=== PATIENT | female | born 1955 | race Caucasian/White ===

== ENCOUNTER 2016-12-11 17:55 | Inpatient (IN) | payer BC, MEDICARE, MEDICAID ==
[~2016-12-11] VITALS: Ht 165.1 cm; Wt 62.9 kg
--- NOTE | ~2016-12-11 | OR ---
PATIENT'S NAME: RUSTY ORTIZ [facility] AGE: 61 Y [address] ROOM: [place] [address] LOCATION: [facility] ADMIT DATE: 12/11/2016 OR/Procedure Report DISCHARGE DATE: FAMILY PHYSICIAN: URBANO BANKS ATTENDING PHYSICIAN: Mark PATINO SURGEON: Corbin Rivers MD DIRECTOR OF MATH: Chadwick Crocker PA-C. DATE OF PROCEDURE: 12/17/2016 POSTOPERATIVE DIAGNOSIS: Right periprosthetic diaphyseal fracture of the femur after a witnessed mechanical fall. POSTOPERATIVE DIAGNOSIS: Right periprosthetic diaphyseal fracture of the femur after a witnessed mechanical fall. PROCEDURE: 1. Revision right long femoral intramedullary nailing. 2. Removal of short femoral intramedullary nail. 3. Use of intraoperative fluoroscopy, less than 1 hour. ANESTHESIA: General endotracheal anesthesia. FLUIDS: See anesthesia report. EBL: 100 mL SPECIMEN: Removed femoral intramedullary nail. COMPLICATIONS: None. DISPOSITION: Stable in PACU. All counts correct. IMPLANTS: Synthes long TFNA with cephalomedullary screw and two distal interlocking screws at the knee. INDICATIONS: Ms. Ortiz is a pleasant 61-year-old female who sustained a fall after undergoing a femoral intramedullary nailing procedure for a right hip fracture. At that time, diagnostic imaging revealed evidence of a periprosthetic fracture just distal to the tip of the short intramedullary device. We discussed the risks, benefits, and alternatives of pursuing a revision operation with the patient's , her power of document review attorney. We discussed the risks, benefits, and alternatives to pursuing a surgical intervention in detail. We discussed the risks of anesthesia, bleeding, infection, and/or injury to neurovascular structures. Informed consent was obtained. They elected to proceed with surgery. I marked the patient's right PATIENT'S NAME: RUSTY ORTIZ [facility] AGE: 61 Y [address] ROOM: [place] [address] LOCATION: [facility] ADMIT DATE: 12/11/2016 OR/Procedure Report DISCHARGE DATE: FAMILY PHYSICIAN: URBANO BANKS ATTENDING PHYSICIAN: Mark PATINO lower extremity indicating correct surgical site. Anesthesia was consulted for their perioperative evaluation on the patient. OPERATIVE REPORT IN DETAIL: The patient brought from the holding area to the operating room. A time-out was performed. General endotracheal anesthesia was administered. The patient positioned on the [place] table. A time-out was performed. Sterile dressings were placed. I turned my attention to the right hip. I introduced intraoperative fluoroscopy. I made a surgical incision at the previous one through skin and subcutaneous tissue, muscle, fascia, down to bone. I attached the removal handle to the top of the intramedullary nail. I then removed the cephalomedullary screw through a separate distal incision followed by a distal interlocking screw through a separate incision, both the previously used surgical incision from when the nail was first inserted. I subsequently removed the nail and confirmed this fluoroscopically. I performed a closed reduction of the hip fracture. I subsequently reamed the femoral shaft up to 11.[address] a size 10 mm nail, 380 mm in length. The femoral nail was subsequently introduced. I obtained a proximal fixation by replacing the same cephalomedullary screw back into the femoral head. This reduction was well-maintained. I applied the set screw. The jig was then removed from the proximal aspect of the nail. I turned my attention to the distal aspect of the nail. It was well reduced in the distal femur. Using a perfect [place] technique, I made a skin incision for two distal interlocking screw holes. The skin incision was carried through skin, subcutaneous tissue, fascia, muscle down to bone. I drilled for, measured, and placed two interlocking screws, one in the distal static hole and one in the oblong hole. I confirmed the position fluoroscopically. Final fluoroscopic images revealed evidence of a successful removal of a previous short intramedullary nail and subsequent long femoral intramedullary nailing of a segmental femur fracture. All the wounds were copiously irrigated with normal sterile saline solution and closed in layers. Sterile Mepilex dressing was placed over the surgical incisions. The patient was then transferred from the operating table onto the stretcher and extubated. She was brought to the recovery room in stable condition. There were no intraoperative complications noted. PATIENT'S NAME: RUSTY ORTIZ [facility] AGE: 61 Y [address] ROOM: [address] [address] LOCATION: [facility] ADMIT DATE: 12/11/2016 OR/Procedure Report DISCHARGE DATE: FAMILY PHYSICIAN: URBANO BANKS ATTENDING PHYSICIAN: Mark PATINO Of note, my PA, Chadwick Crocker PA-C, played an integral role in the intraoperative care of this patient. This included preoperative positioning, intraoperative expert retraction, and closing and dressing functions. IMPRESSION: The patient is status post the noted procedures above. PLAN: The patient will be toe-touch weightbearing on the right lower extremity. Postoperative DVT prophylaxis will be in the form of Lovenox. Pain control will be in form of Percocet and IV morphine as needed for pain. Postoperative antibiotics will be in the form of Ancef per routine. Physical Therapy and Occupational Therapy will be consulted for early ambulation and prevention of deconditioning. The hospitalist will continue to manage the patient's concomitant medical comorbidities. I will continue to follow the patient closely in the postoperative period. MD MAGGIE LUND/modl /[id number] d: 12/17/16 2243 t: 12/21/16 1405, OPERATIVE SUMMARY
--- NOTE | ~2016-12-11 | OR ---
PATIENT'S NAME: RUSTY ORTIZ [facility] AGE: 61 Y [address] ROOM: [place] [address] LOCATION: [facility] ADMIT DATE: 12/11/2016 OR/Procedure Report DISCHARGE DATE: FAMILY PHYSICIAN: PHYSICIAN, UNKNOWN ATTENDING PHYSICIAN: Mark PATINO SURGEON: Corbin Rivers MD NUCLEAR REACTOR ENGINEER: Chadwick Crocker PA-C. DATE OF PROCEDURE: 12/12/2016 PREOPERATIVE DIAGNOSIS: Right comminuted intertrochanteric fracture of the proximal femur. POSTOPERATIVE DIAGNOSIS: Right comminuted intertrochanteric fracture of the proximal femur. PROCEDURE: 1. Right femoral intramedullary nailing. 2. Use of intraoperative fluoroscopy, less than 1 hour. ANESTHESIA: General endotracheal anesthesia. FLUIDS: See Anesthesia report. ESTIMATED BLOOD LOSS: 50 mL. SPECIMEN: None. COMPLICATIONS: None. DISPOSITION: Stable in PACU. COUNTS: All counts correct. IMPLANTS: Synthes right TFN-A. INDICATION: Ms. Ortiz is a pleasant 61-year-old female who presents with a right hip fracture. The risks, benefits, and alternatives of pursuing surgical intervention were discussed with her , her power of sports attorney. Anesthesia was consulted for their perioperative evaluation of the patient. I marked the patient's right lower extremity indicating correct surgical site. DESCRIPTION OF PROCEDURE: The patient was brought from the holding area to the operating room. A time-out was performed. General endotracheal anesthesia was administered. 2 g of Ancef antibiotics were administered for perioperative prophylaxis. PATIENT'S NAME: RUSTY ORTIZ [facility] AGE: 61 Y [address] ROOM: [place] [address] LOCATION: [facility] ADMIT DATE: 12/11/2016 OR/Procedure Report DISCHARGE DATE: FAMILY PHYSICIAN: PHYSICIAN, UNKNOWN ATTENDING PHYSICIAN: Mark PATINO The patient was positioned supine on the [place] table with the right leg in traction. Intraoperative fluoroscopy was introduced to assess the preoperative reduction. Once the preoperative reduction was undertaken, the right lower extremity was then prepped and draped in a sterile fashion. I turned my attention to the right hip. A time-out was performed. I began with a pin at the tip of the greater trochanter to enter into the intramedullary canal. I then made a surgical incision 3 fingerbreadths proximal to the tip of the greater trochanter through skin, subcutaneous tissue, muscle fascia down to bone. I then introduced my opening reamer to open the intramedullary canal. I subsequently introduced my femoral nail. Once the nail was introduced, I subsequently placed a pin into the femoral head for my cephalomedullary screw. I confirmed its position fluoroscopically. The hip was well reduced previously. I subsequently measured for, drilled, and placed a cephalomedullary screw into the hip and subsequently compressed through the nail. I confirmed the reduction fluoroscopically. I turned my attention to the distal aspect of the nail. I made an incision through skin, subcutaneous tissue, muscle fascia down to bone. I introduced the jig, drilled for, measured, and placed an interlocking screw through the nail distally. The gross traction was removed from the leg. Final fluoroscopic images revealed evidence of a successfully open reduced and internally fixated comminuted intertrochanteric fracture of the hip with a femoral intramedullary nail. The wounds were then copiously irrigated with a normal sterile saline solution and closed in layers. The patient was then transferred from the operating room table onto the hospital bed and extubated. She was brought to the recovery room in stable condition. There were no intraoperative complications noted. Of note, my PA, Chadwick Crocker PA-C, played an integral role in the intraoperative care of this patient. This included preoperative positioning, intraoperative expert retraction, and closing and dressing functions. IMPRESSION: The patient is status post the noted procedures above. PLAN: The patient will be weightbearing as tolerated in the right lower PATIENT'S NAME: RUSTY ORTIZ [facility] AGE: 61 Y [address] ROOM: [address] [address] LOCATION: [facility] ADMIT DATE: 12/11/2016 OR/Procedure Report DISCHARGE DATE: FAMILY PHYSICIAN: PHYSICIAN, UNKNOWN ATTENDING PHYSICIAN: Mark PATINO. She will be encouraged to rest, ice, and elevate the extremity going forward. Postoperative pain control in the form of Percocet and IV morphine as needed for pain. DVT prophylaxis will be in the form of Lovenox. Postoperative antibiotics will be administered per routine. The Hospitalist Service will continue to manage the patient's concomitant medical comorbidities. I will continue to monitor the patient closely in the postoperative period. MD MAGGIE LUND/africa /[id number] d: 12/12/16 1919 t: 12/13/16 1232, OPERATIVE SUMMARY
--- NOTE | ~2016-12-11 | DS ---
PATIENT'S NAME: RUSTY ORTIZ [facility] AGE: 61 Y [address] ROOM: [address] [address] LOCATION: G3 ADMIT DATE: 12/11/2016 Discharge Summary DISCHARGE DATE: 12/23/2016 FAMILY PHYSICIAN: ATTENDING PHYSICIAN: Mark Bird DISCHARGE DIAGNOSES: 1. Right intertrochanteric fracture status post IM nail with subsequent periprosthetic diaphyseal fracture with revision of IM nail. 2. Dysphagia status post PEG tube. 3. Seizure disorder. 4. Protein calorie malnutrition. 5. Essential hypertension. 6. Vitamin D deficiency. HOSPITAL COURSE: Please refer to admitting history and physical as dictated by Dr. Meza. Briefly, the patient was admitted to [facility] with a right intertrochanteric hip fracture. Dr. Rivers was consulted. He recommended she proceed with a right femoral IM nail. This was done on 12/12/2016. Postoperatively, the patient tolerated the procedure well. Her seizures were well controlled with her home regimen. Postoperatively, she was noted to have some dysphagia. Speech therapy did evaluate the patient. She was started on nectar-thick liquids and pureed foods. Dilaudid was used for pain. The patient appeared comfortable postoperatively. Lovenox was used for DVT prophylaxis. On 12/15/2016, she was found sitting upright on the floor. CT scan of the right femur was performed, which did show periprosthetic fracture. Therefore, Dr. Rivers took her back to surgery and performed placement of a long FIN. She was made toe-touch weightbearing. On 12/19/2016, she was noted to have some hypotension. She was given a fluid bolus. This did improve. Due to her dysphagia, surgery consult was obtained for PEG tube placement. Her did consent to the PEG tube. This was performed on 12/18/2016. While the patient was n.p.o. waiting for the PEG tube, PPN was used for her moderate protein calorie malnutrition. She was noted to have elevated alkaline phosphatase, AST and ALT. Right upper quadrant ultrasound was performed which showed changes of a previous cholecystectomy with no abnormality identified. The following day, her AST, ALT and alkaline phosphatase had trended downward. On 12/23/2016, the patient had been started on Jevity tube feedings working the way up to goal. Her vital signs were stable. Pain was controlled. Vital signs were stable. It was felt as though she was stable to be transferred to [facility] with the eventual goal [facility]. LABORATORY DATA: Sodium remained stable. Potassium 3.6 to 4.6. BUN 23 on admit and 10 prior to discharge. Creatinine 0.4 upon admit and 0.5 prior to discharge. Alkaline phosphatase 70 upon admit, it did increase as high as PATIENT'S NAME: RUSTY ORTIZ [facility] AGE: 61 Y [address] ROOM: [address] [address] LOCATION: [facility] ADMIT DATE: 12/11/2016 Discharge Summary DISCHARGE DATE: 12/23/2016 FAMILY PHYSICIAN: ATTENDING PHYSICIAN: Mark Bird 235, prior to discharge 223. AST 30 upon admit, it increased to 83, prior to discharge 34. ALT 34 on admit, it went as high as 78, it is 54 prior to discharge. GFR greater than 90. Mag 2.0. Pre-albumin 17, hemoglobin A1c 4.4, TSH 2.280. WBC 6.0 to 9.4, hemoglobin 10.8 to 11.9, platelets 409. UA; leukocytes 25, protein 15, ketones negative, blood 10, wbc's 5-10, epithelial 2-5, bacteria moderate. Stool occult blood was negative x3. C. diff negative. Urine culture, no growth at 2 days. DISCHARGE INSTRUCTIONS: The patient will be discharged to [facility]. Follow up with Dr. Rivers in 2 weeks. Jevity 1.5 or per facility formula, formulary started at 110 mL x3 feedings, increase as tolerated to goal, 220 mL six times per day, 60 mL water flush before and after feedings. Weightbearing status; toe-touch weightbearing right lower extremity. PT/OT/ST to evaluate and treat. Oxygen as needed to keep saturations greater than 90%. CBC and CMP on 12/25/2016. Recheck vitamin D level in 7 weeks. Change Mepilex to right hip and thigh every 7 days. Discontinue Clemente upon arrival to accepting facility. Rehab potential is poor. Discharge potential is poor. DISCHARGE MEDICATIONS: 1. Norvasc 10 mg p.o. daily. 2. Abilify 20 mg p.o. daily. 3. BuSpar 5 mg p.o. twice daily. 4. Os-Mark D 500 mg p.o. twice daily. 5. Liquid Colace 100 mg p.o. 3 times a day. 6. Felbatol 1800 mg p.o. 3 times daily. 7. Ativan 0.5 mg twice daily. 8. Geodon 160 mg daily. 9. Geodon 20 mg p.o. daily at 0800. 10. Geodon 220 mg at 1700. 11. Multivitamin daily. 12. MiraLax 17 g twice daily. 13. Senna 8.6 mg p.o. twice daily. 14. Vitamin D 48533 units weekly x6 weeks. 15. Tylenol 650 mg rectally every 4 hours as needed for pain. 16. Tylenol 650 mg per PEG every 4 hours p.r.n. 17. Dulcolax suppository daily p.r.n. constipation. 18. Milk of magnesia 30 mL daily p.r.n. constipation. 19. Nystatin as needed for yeast. 20. Preparation H ointment as needed for hemorrhoids. 21. Albuterol 1 vial as needed for wheezing. 22. Lorazepam 2 mg topical cream only after third seizure. 23. Banzel 1600 mg twice daily. 24. Gabitril 12 mg p.o. daily. 25. Maalox 30 mL every 2 hours as needed for indigestion. 26. Onfi 60 mg rectally every night at bedtime. PATIENT'S NAME: RUSTY ORTIZ [facility] AGE: 61 Y [address] ROOM: [place] [address] LOCATION: [facility] ADMIT DATE: 12/11/2016 Discharge Summary DISCHARGE DATE: 12/23/2016 FAMILY PHYSICIAN: ATTENDING PHYSICIAN: Mark Bird 27. Onfi 10 mg p.o. every day. 28. Oxygen 1-4 L p.r.n. when saturations below 90%. 29. Lorazepam 1 mg cream topically p.r.n. agitation or behaviors. 30. Aloe [place] p.r.n. 31. All meds per PEG tube that were p.o. 32. Lovenox 40 mg subcu daily. Stop after 01/31/2017 dose, indication for DVT prophylaxis. 33. Percocet 5/325 one tablet p.o. q.4 hours p.r.n. pain. Thank you for allowing us to participate in the care of this patient as she has been hospitalized at [facility]. CAITY ELLSWORTH APRN FOR MD SARAY CRAWFORD/sharril /[id number] d: 12/24/16 0113 t: 12/26/16 1541, DISCHARGE SUMMARY
--- NOTE | ~2016-12-11 | OR ---
PATIENT'S NAME: RUSTY ORTIZ [facility] AGE: 61 Y [address] ROOM: [place] [address] LOCATION: [facility] ADMIT DATE: 12/11/2016 OR/Procedure Report DISCHARGE DATE: FAMILY PHYSICIAN: URBANO BANKS ATTENDING PHYSICIAN: Mark PATINO SURGEON: Steve Menezes MD MOBILE DESIGNER: DATE OF PROCEDURE: 12/22/2016 PREOPERATIVE DIAGNOSIS: Dysphagia. POSTOPERATIVE DIAGNOSIS: Dysphagia. PROCEDURE PERFORMED: EGD with PEG placement. ANESTHESIA: MAC with local. SPECIMEN: None. ESTIMATED BLOOD LOSS: Minimal. REASON FOR PROCEDURE: The patient is a 61-year-old female, who has been hospitalized recently. She failed a barium swallow and has felt like she is in need of long-term enteral access. She has had a previous PEG placed, but had been pulled sometime ago. PROCEDURE IN DETAIL: The patient was taken to the endoscopy suite and placed in the supine position. After Anesthesia provided sedation, a bite block was placed between her teeth. The gastroscope was advanced through the bite block and the esophagus was intubated under direct visualization. The scope was gradually advanced down a normal-appearing esophagus. The stomach was insufflated and inspected. Pressure on the abdominal wall was used to localize an area for PEG placement. This was then marked and prepped with ChloraPrep and a drape was applied to the area. Local with epinephrine was injected into the area, a 1 cm stab incision was made. A needle was then advanced through the abdominal wall and visualized entering the gastric mucosa. A guidewire was advanced through the needle. The guidewire was grasped with a snare and carefully withdrawn up the esophagus and oropharynx. The PEG tube was advanced over the guidewire and pulled into position. A bolster was used to hold this in place. We also applied a Prolene suture to help to prevent the patient from pulling her tube. POSTPROCEDURE PLAN: The patient will be sent to recovery and then back to the floor. We will leave the tube clamp for 8 hours and then restart tube feeds. PATIENT'S NAME: RUSTY ORTIZ [facility] AGE: 61 Y [address] ROOM: [address] [address] LOCATION: [facility] ADMIT DATE: 12/11/2016 OR/Procedure Report DISCHARGE DATE: FAMILY PHYSICIAN: URBANO BANKS ATTENDING PHYSICIAN: Mark PATINO MD HECTOR KAHN/modl /[id number] d: 12/22/16 1550 t: 12/25/16 0944, OPERATIVE SUMMARY
--- NOTE | ~2016-12-11 | CON ---
PATIENT'S NAME: RUSTY ORTIZ [facility] AGE: 61 Y [address] ROOM: [address] [address] LOCATION: G3 ADMIT DATE: 12/11/2016 Consultation DISCHARGE DATE: FAMILY PHYSICIAN: PHYSICIAN, UNKNOWN ATTENDING PHYSICIAN: Mark PATINO DATE OF CONSULTATION: 12/12/2016 REFERRING PHYSICIAN: SHALOM MIRANDA MD CHIEF COMPLAINT: Right hip and groin pain. HISTORY OF PRESENT ILLNESS: Ms. Ortiz is a pleasant, 61-year-old female with a complex past medical history that includes seizures and difficulty with vocal communication who sustained a fall apparently last Thursday from her wheelchair. Nurses report that she slid out of the wheelchair. This is according to her . Her did not witness the fall. He is her power of collections attorney. He explained to me today that she was brought to the [facility] emergency room where she was seen and evaluated on 12/11/2016. I was contacted by the physician referral line and spoke to the physician caring for the patient in the long- term care facility. He explained that her symptoms appeared to be acute, but only over the last 2 days. The physician did not report any witnessed falls. He reports that the care is 24 hours around the clock at this particular facility. Aggravating factors for the patient include movement of the hip, attempted weightbearing, and/or manipulation of the limb. Alleviating factors include rest, ice, and immobilization. The patient was transferred to [facility] for definitive orthopedic care. Currently, the patient denies any constitutional symptoms such as fever, chills, or night sweats. She also denies any dizziness, chest pain, shortness of breath, blurred vision, nausea, vomiting, or diarrhea. She reported the pain at the time of the injury at 10/10. When at rest, the pain is more of 4/10. REVIEW OF SYSTEMS: A 10-point review of systems is otherwise as mentioned above in the HPI. The rest of the review of systems is negative. PAST MEDICAL HISTORY: Includes seizure disorder and vagal nerve stimulator. PAST SURGICAL HISTORY: None. CURRENT MEDICATIONS: Include: PATIENT'S NAME: RUSTY ORTIZ [facility] AGE: 61 Y [address] ROOM: [address] [address] LOCATION: [facility] ADMIT DATE: 12/11/2016 Consultation DISCHARGE DATE: FAMILY PHYSICIAN: PHYSICIAN, UNKNOWN ATTENDING PHYSICIAN: Mark PATINO 1. Acetaminophen. 2. Albuterol. 3. Maalox. 4. Amlodipine. 5. Aripiprazole. 6. Dulcolax. 7. BuSpar. 8. Clobazam. 9. Colace. 10. Labetalol. 11. Loperamide. 12. Lorazepam. 13. Milk of magnesia. 14. Multivitamin. 15. Oxygen. 16. MiraLAX. 17. Rufinamide. 18. Gabitril. 19. Nystatin. 20. Ativan. 21. Witch hope. 22. Geodon. SOCIAL HISTORY: The patient resides in a prison care facility and is entirely dependent for all of her activities of daily living. FAMILY HISTORY: According to her , is unknown. PHYSICAL EXAMINATION: VITAL SIGNS: Temperature of 96.6, pulse of 67, respirations of 20, blood pressure 139/71, and saturation of 95% on 2 L nasal cannula. GENERAL: The patient appears well developed. She is in no acute distress while at rest. She is not able to converse with me. HEENT: Normocephalic and atraumatic. NECK: Supple. Trachea is in the midline. CARDIOVASCULAR: Regular rate and rhythm. CHEST: Normal symmetric respirations observed bilaterally. ABDOMEN: Soft, nontender, and nondistended. MUSCULOSKELETAL: Right Lower Extremity: Focal examination of the patient's right lower extremity reveals that she is grossly neurologically intact distally. Compartments of thigh, leg, and foot are soft. There is a positive log roll test. The patient is not actively following commands, but I am able to passively dorsiflex and plantar flex her ankle. She is able to wiggle her PATIENT'S NAME: RUSTY ORTIZ [facility] AGE: 61 Y [address] ROOM: [address] [address] LOCATION: [facility] ADMIT DATE: 12/11/2016 Consultation DISCHARGE DATE: FAMILY PHYSICIAN: PHYSICIAN, UNKNOWN ATTENDING PHYSICIAN: Mark PATINO toes. There is a palpable dorsalis pedal and posterior tibial pulse and good capillary refill in the toes. IMAGING: Plain radiographs were obtained at an outside institution and reveal evidence of a right, shortened, displaced, comminuted, intertrochanteric fracture of the proximal femur. IMPRESSION: 1. Right, comminuted, and displaced intertrochanteric fracture of the proximal femur. 2. Seizure disorder. PLAN: I had a long discussion with the patient's this morning. The patient herself is not communicative. I explained that the patient has a right hip fracture. I am recommending open reduction and internal fixation of the right hip. I discussed the risks, benefits, and alternatives to pursuing surgical intervention with the patient's in detail. I discussed the risks of anesthesia, bleeding, infection, and/or injury to neurovascular structures. He expressed understanding of this. We will maintain the patient at bedrest for now. A Clemente catheter has been placed. Pain medicine will be ordered. DVT prophylaxis will be held, and we will use mechanical prophylaxis instead. We will plan for surgery as soon as this afternoon. MD MAGGIE LUND/africa /[id number] d: 12/12/16 1151 t: 12/12/16 1312, CONSULTATION REPORT
--- NOTE | ~2016-12-11 | HP ---
PATIENT'S NAME: RUSTY ORTIZ [facility] AGE: 61 Y [address] ROOM: [place] [address] LOCATION: [facility] ADMIT DATE: 12/11/2016 History & Physical DISCHARGE DATE: FAMILY PHYSICIAN: PHYSICIAN, UNKNOWN ATTENDING PHYSICIAN: Mark PATINO DATE OF SERVICE: CHIEF COMPLAINT: Hip fracture. HISTORY OF PRESENT ILLNESS: This is obtained entirely from the transferring records. The patient is a 61- year-old female, resident of a long term facility due to profound seizure disorder, on multiple medications. 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 The patient also has a vagal nerve stimulator and is on an extensive anti-seizure regimen. Apparently, she fell about a week ago and today was found to have a right intertrochanteric hip fracture. The patient apparently is not alert and oriented and can be quite abusive at times. REVIEW OF SYSTEMS: Per documentation supporting the patient, there are no apparent complaints of shortness of breath, nausea, vomiting, chest pain, or palpitations. All remaining systems were reviewed and are negative aside from pertinent positives mentioned above. PAST MEDICAL HISTORY: As per HPI. PAST SURGICAL HISTORY: As per HPI. CURRENT MEDICATIONS: 1. Acetaminophen. 2. Albuterol. 3. Maalox. 4. Amlodipine. 5. Aripiprazole. 6. Dulcolax. 7. BuSpar. 8. Clobazam. 9. Colace. PATIENT'S NAME: RUSTY ORTIZ [facility] AGE: 61 Y [address] ROOM: [place] [address] LOCATION: [facility] ADMIT DATE: 12/11/2016 History & Physical DISCHARGE DATE: FAMILY PHYSICIAN: PHYSICIAN, UNKNOWN ATTENDING PHYSICIAN: Mark PATINO 10. Felbatol. 11. Loperamide. 12. Lorazepam. 13. Milk of magnesia. 14. Multivitamin. 15. Oxygen. 16. MiraLAX. 17. Rufinamide. 18. Senna. 19. Gabitril. 20. Nystatin. 21. Ativan. 22. Witch Rose. 23. Geodon. SOCIAL HISTORY: The patient is a resident of a long term facility and entirely dependent on her ADLs. FAMILY HISTORY: It was attempted but is noncontributory due to known underlying etiology for her presentation. PHYSICAL EXAMINATION: VITAL SIGNS: Temperature 96.6, pulse is 67, respirations 20, blood pressure 139/71, saturating 95% on 2 L nasal cannula. GENERAL: Appears as a well-developed, well-nourished, elderly female, in no acute distress. Not really conversive. NEUROLOGIC: Grossly nonfocal to the extent of patient's participation, which is minimal. EYES: Show pupils are equal and reactive to light. LYMPHATIC: Shows no cervical lymphadenopathy. ENDOCRINE: Shows no thyromegaly. LUNGS: Clear to auscultation. HEART: Rate is regular. GI: Abdomen is soft, nontender, nondistended. : No costovertebral angle tenderness. VASCULAR: 2+ pedal pulses. MUSCULOSKELETAL: Deferred due to a hip fracture. SKIN: Warm and dry. PSYCHIATRIC: Cannot be assessed. LABORATORY DATA: Review of studies from the outside facility shows an EKG, which shows sinus rhythm without any significant ST-segment or T-wave abnormalities. Her basic PATIENT'S NAME: RUSTY ORTIZ [facility] AGE: 61 Y [address] ROOM: [place] [address] LOCATION: [facility] ADMIT DATE: 12/11/2016 History & Physical DISCHARGE DATE: FAMILY PHYSICIAN: PHYSICIAN, UNKNOWN ATTENDING PHYSICIAN: Mark PATINO metabolic profile and CBC are unremarkable. Chest x-ray at this point is pending. ASSESSMENT AND PLAN: This is a 61-year-old female with: 1. Intertrochanteric hip fracture. At this point, I do not believe the patient will require any further optimization. She will be kept n.p.o., and we recommend Orthopedics Service to proceed with surgery. 2. Severe seizure disorder. We will try and continue the patient on all of the medications that she is on, though some of these do appear to be non- formulary. We will control her acute seizures as needed with Ativan. It was communicated to me that on average the patient seizes 1 to 2 times a day. 3. Symptomatic support. We will provide the patient with gentle opioids as needed for pain control. 4. Goals of care. The patient is DNR, and we will respect those wishes while she is here. Additional management will depend on clinical course. Time dedicated to this patient's encounter is 35 minutes. MD DALE ANDREW/africa /[id number] D: [id number] T: [id number] HISTORY & PHYSICAL
[2016-12-11] MEDS ORDERED: TYLENOL650 MG R (21:25)
[2016-12-11] MEDS ORDERED: TYLENOL325 MG PO (21:26)
[2016-12-11] MEDS ORDERED: PROVENTIL2.5 MG/0.5 INH (21:27)
[2016-12-11] MEDS ORDERED: NORVASC10 MG PO (21:28)
[2016-12-11] MEDS ORDERED: ABILIFY20 MG PO (21:28)
[2016-12-11] MEDS ORDERED: LORAZEPAM 2 MG TOP (21:29)
[2016-12-11] MEDS ORDERED: BANZEL400 MG PO (21:31)
[2016-12-11] MEDS ORDERED: BUSPAR5 MG PO (21:32)
[2016-12-11] MEDS ORDERED: DULCOLAX10 MG R (21:32)
[2016-12-11] MEDS ORDERED: DIOCTO (= CO10 MG/ML PO (21:33)
[2016-12-11] MEDS ORDERED: FELBATOL600 MG PO (21:34)
[2016-12-11] MEDS ORDERED: GABITRIL12 MG PO (21:35)
[2016-12-11] MEDS ORDERED: GEODON80 MG PO (21:36)
[2016-12-11] MEDS ORDERED: GEODON20 MG PO (21:36)
[2016-12-11] MEDS ORDERED: IMODIUM2 MG PO (21:37)
[2016-12-11] MEDS ORDERED: ATIVAN 0.5MG0.5 MG PO (21:37)
[2016-12-11] MEDS ORDERED: MAALOX LIQ UNIT30 ML PO (21:38)
[2016-12-11] MEDS ORDERED: MILK OF MA400 MG/5 M PO (21:39)
[2016-12-11] MEDS ORDERED: THERAGRAN-M1 TAB PO (21:39)
[2016-12-11] MEDS ORDERED: NYSTATIN1 EAC1 TOP (21:42)
[2016-12-11] MEDS ORDERED: ONFI20 MG R (21:44)
[2016-12-11] MEDS ORDERED: ONFI10 MG PO (21:45)
[2016-12-11] MEDS ORDERED: MIRALAX17 GM PO (21:46)
[2016-12-11] MEDS ORDERED: SENNA8.6 MG PO (21:48)
[2016-12-11] MEDS ORDERED: [UNRECOGNIZED DRUG - OTHER] TOP (21:48)
[2016-12-11] MEDS ORDERED: OXYGEN M-15 INH (21:53)
--- NOTE | 2016-12-11 22:08 | NUR ---
The stated that she fell a week. The stated that she had a seizure on Thursday and has been hurting ever since then. Last night she could not bend her legs. Today she went into the [facility] to get checked out and was then transported to [facility]. stated that she is nonverbal.
[2016-12-11] MEDS ORDERED: LORAZEPAM 1 MG TOP (22:26)
[2016-12-12 00:45] LABS: BASOPHIL % 0.7 %; EOSINOPHIL # 0.2 K/uL (0.0-0.5); EOSINOPHIL % 3.2 %; HEMATOCRIT 35.6 % (33.0-46.0); HEMOGLOBIN 11.9 g/dL (10.0-15.0); IMMATURE GRANULOCYTE % 0.5 %; LYMPHOCYTE # 0.7 K/uL (0.8-4.0); LYMPHOCYTE % 11.8 %; MCH 32.9 pg (27.0-34.0); MCHC 33.4 gm/dL (32.0-36.5); MCV 98.3 fl (83.0-98.0); MONOCYTE # 0.4 K/uL (0.0-1.0); MONOCYTE % 6.3 %; MPV 9.4 fl (9.4-12.4); NEUTROPHIL # (ANC) 4.7 K/uL (1.8-7.8); NEUTROPHIL % 77.5 %; NRBC % 0 /100WBC (0-0.00); PLATELET COUNT 217 K/uL (150-450); RBC 3.62 M/uL (3.50-5.50); RDW-CV 13.5 % (11.9-14.6)
[2016-12-12 00:58] LABS: ANION GAP 11.8 (10.0-19.0); CALCIUM 8.2 mg/dL (8.5-10.5); CREATININE 0.4 mg/dL (0.5-1.1); POTASSIUM 3.8 mMol/L (3.7-5.1)
--- NOTE | 2016-12-12 04:37 | NUR ---
Significant Event: Patient is non verbal, but does mumble at times. On 1 L of oxygen nasal cannula. Dilaudid IV at 0031. CSM WNL. states to crush medications. History of seizures. Has a suarez cathter. Permits not signed. Follow up:
[2016-12-12] MEDS ORDERED: GEODON60 MG PO (09:46)
[2016-12-12] MEDS ORDERED: [UNRECOGNIZED DRUG - OTHER] TOP (09:57)
--- NOTE | 2016-12-12 14:44 | NUR ---
Introduced self and role of care management to pt's . THey are from [place] and pt resides at the [facility] there. HE states she has BCBS of [place] and is primary then Medicare and medicaid. I explained that is good because [facility] does not have skilled benefits. I discussed dc plans and he stated his md Dr Chaparro stated she would come back to the [facility] swingbed first then back to [facility]. She would need to go by ambulance. I then updated Denies the lawn care worker. I called [facility] and left a vm for a Bhargavi and faxed initial information and plan Thursday for transfer. WIll continue to follow.
--- NOTE | 2016-12-12 14:45 | NUR ---
FX HIP CONSULT. PT NOT AT RISK. WILL ASSIST NEEDED.
--- NOTE | 2016-12-12 16:59 | NUR ---
Significant Event: Pt went to OR @ 0915 and returned from pacu @ 1520. Has been slow to wake up. Does arouse but goes right back to sleep. O2 4L. Mepilex dressing x2 c/d/i. Feet warm, good pedal pulses. Unable to assess movement or sensation. Foot pumps on. IV L) hand. Refused all am meds, even when crushed. family @ bedside. Follow up:
[2016-12-12 18:38] LABS: BILIRUBIN URINE NEGATIVE (NEGATIVE); BLOOD URINE 10 /UL (NEGATIVE); COLOR URINE YELLOW (YELLOW); GLUCOSE URINE NEGATIVE (NEGATIVE); KETONE URINE NEGATIVE (NEGATIVE); LEUKOCYTES URINE 25 /UL (NEGATIVE); NITRITE URINE NEGATIVE (NEGATIVE); PROTEIN URINE 30 mg/dL (NEGATIVE); SPEC GRAVITY URINE 1.015 (1.003-1.035); TURBIDITY URINE CLEAR (CLEAR); UROBILINOGEN URINE NORMAL (NORMAL)
[2016-12-12 18:48] LABS: RBC URINE 0-2 #/HPF (NEGATIVE)
[2016-12-12 18:49] LABS: AMORPHOUS URINE 1+ (NEGATIVE); BACTERIA URINE NEGATIVE (NEGATIVE)
--- NOTE | 2016-12-13 05:11 | NUR ---
Pt nonverbal. Pt ate all of grace jello, and ice cream. Family wants to make sure she gets a breakfast ordered. Pt had percocet for pain initially but didnt seem to help as pt was grimacing and restless. Pt given 0.2 iv dilaudid last at 0440, which seemed to help the pain. Hx of seizures. Crush meds. Pt is a feeder. Bp's were consistently in the low 90's systolic and urine was concentrated. Pt received a 1 Liter NS bolus and has NS at 50cc/hr. Pt has home meds in med room, the ONFI is in the omnicell. Dressing is dry and intact. Unable to assess sensation to foot but pt can move it and has a strong pedal pulse.
[2016-12-13 06:13] LABS: BASOPHIL # 0.1 K/uL (0.0-0.2); BASOPHIL % 0.7 %; EOSINOPHIL # 0.2 K/uL (0.0-0.5); EOSINOPHIL % 2.5 %; HEMATOCRIT 34.1 % (33.0-46.0); HEMOGLOBIN 11.3 g/dL (10.0-15.0); IMMATURE GRANULOCYTE # 0.1 K/uL (0.0-0.3); IMMATURE GRANULOCYTE % 0.6 %; LYMPHOCYTE # 0.7 K/uL (0.8-4.0); MCH 33.1 pg (27.0-34.0); MCHC 33.1 gm/dL (32.0-36.5); MONOCYTE # 0.8 K/uL (0.0-1.0); MONOCYTE % 9.2 %; MPV 9.6 fl (9.4-12.4); NEUTROPHIL # (ANC) 6.4 K/uL (1.8-7.8); NRBC % 0 /100WBC (0-0.00); PLATELET COUNT 228 K/uL (150-450); RBC 3.41 M/uL (3.50-5.50); RDW-CV 13.3 % (11.9-14.6); WBC 8.3 K/uL (4.0-11.0)
[2016-12-13 06:28] LABS: ALBUMIN 2.4 gm/dL (3.5-5.0); ALK PHOS 70 IU/L (33-138); ALT 34 IU/L (12-78); AST 30 IU/L (10-40); BLOOD UREA NITROGEN 14 mg/dL (6-24); CALCIUM 8.2 mg/dL (8.5-10.5); CHLORIDE 111 mMol/L (96-110); CO2 27 mMol/L (22-32); CREATININE 0.6 mg/dL (0.5-1.1); POTASSIUM 3.6 mMol/L (3.7-5.1); TOTAL BILIRUBIN 0.5 mg/dL (0.0-1.5)
[2016-12-13 06:29] LABS: ANION GAP 11.6 (10.0-19.0); SODIUM 146 mMol/L (135-145)
--- NOTE | 2016-12-13 16:14 | NUR ---
Significant Event: Mostly non-verbal. Occasionally calls out, mumbles. Crush pills and give with chocolate ice cream. Opens eyes. Mepilex dressing x2 to rt hip. Moves feet frequently. Sat on edge of bed with PT. Chyna patent. O2 at 3L per nasal cannula. at bedside Follow up:
--- NOTE | 2016-12-14 04:10 | NUR ---
Significant Event: Mostly non-verbal, mumbled some. Dilaudid 0.4 mg IVP at 0145, slept most of night. Kicked her feet often. IV infusing right hand, Saline lock in left hand. Crush pills fine, into chocalate ice cream. O2 at 3L per nasal cannula. Opens eyes occasionally. Clemente patent. Bilateral foot pumps. Follow up:
--- NOTE | 2016-12-14 16:56 | NUR ---
Significant Event: Patient non verbal. Ocassionally mumble. Pills crushed finely in chocolate ice cream. Mepilex dressing x2 dry and intact to rt hip. O2 at 2L per nasal cannula. Clemente removed at 1530. Up in recliner with lift. IV saline locked Follow up:
--- NOTE | 2016-12-15 03:22 | NUR ---
Significant Event: Mostly non-verbal, mumbles at times. Pills need to be finely crushed into chocolate ice cream. Mepilex dressings x2 C/D/I. VSS, 2 LPM per nasal cannula. Repositioned Q2H in bed. Full lift when transferring. Emesis early in shift, gave Zofran 4 mg IVP. Has slept most of night. Strong pedal pulse right foot. Bilateral foot pumps. Clemente removed yesterdat 1529, 2 large incontinences urine in brief, last changed at 0315. Saline locks in left hand and right hand. Follow up:
[2016-12-15 04:58] LABS: ALBUMIN 2.3 gm/dL (3.5-5.0); ANION GAP 12.2 (10.0-19.0); BLOOD UREA NITROGEN 7 mg/dL (6-24); CALCIUM 8.1 mg/dL (8.5-10.5); CHLORIDE 109 mMol/L (96-110); CO2 28 mMol/L (22-32); CREATININE 0.4 mg/dL (0.5-1.1); PHOSPHORUS 3.2 mg/dL (2.5-4.9); POTASSIUM 4.2 mMol/L (3.7-5.1); SODIUM 145 mMol/L (135-145)
--- NOTE | 2016-12-15 05:18 | NUR ---
Rechecked brief at 0515 - dry.
--- NOTE | 2016-12-15 14:10 | NUR ---
Met with MORENO Ghotra with ortho and he states from an ortho standpoint patient will be ready for discharge. Met with speech therapy and patient was not drinking her thickened liquids today. Met with Jarred Wagoner APRN and he states that she is likely not ready for discharge today and we are still trying to figure out where she is at baseline for her eating. The teams consensus is that patient transfers back to the long-term in [place] versus going to swingbed in [place]. Will return to the floor and try to meet with the family later today.
--- NOTE | 2016-12-15 19:37 | NUR ---
Significant Event:VSS, pt slid out of recliner at 0950. Xray and Ct scan of pelvis/hip completed. Pedal pulses +2, edema +1 to lower extremites. Mepilex dsg to R hip CDI. Ecchymosis noted to be yellow/purple from previous injury. Pt extremites are stiff at times, move spontaneously at times. Does not follow comprehend commands. Speech is mostly incoherent. Fed meals, crushed meds with chocolate pudding. Swallows nectar thickened liquids at times, spits out food at times. Incontinent of moderate amounts of urine, 2 moderate BM. Remains on bedrest, bed alarms on. Follow up:Monitor
--- NOTE | 2016-12-16 04:55 | NUR ---
Significant Event: Mostly non-verbal, mumbles, cries out at times. Fell out of recliner yesterday on day shift. Bedrest only, refractured right hip. VSS. Feeder. Wears brief, incontinent. Was dry last check. Small BM. Is a feeder. Bilateral foot pumps. Dilaudid 0.4 mg IVP at 2330. Mepilex dressings x2 C/D/I. Huge bruise on right hip. Full lift. Has Vagal nerve stimulator left upper chest. Pedal pulse present right foot. Tends to move feet quite often. Likes pills crushed finely in chocolate ice cream. Follow up:
--- NOTE | 2016-12-16 14:42 | NUR ---
A-SCREENED D/T LOS S/P FX HIP REPAIR. FELL OUT OF RECLINER YESTERDAY; REFRACTURED HIP. WILL GO TO OR TOMORROW FOR REPAIR. PT IS NON-VERBAL. HT: 65 IN. WT (11/11; NO CBW): 65.9 KG. BMI: 23.8 LABS: NA 145, K+ 4.2, GLU 113, BUN 7, ENVIRONMENTAL ADVISOR 0.4, ALB 2.3 MEDS: PERCOCET, NORCO, DILAUDID, GEODIN, MVI, ABILIFY, PEPCID, SENOKOT, MIRALAX, ATIVAN, DOCU, ZOFRAN DIET RX: PUREE DIET/NECTAR THICK LIQUIDS. PT IS A FEEDER. PO INTAKE HAS BEEN BITES-75% EST NUTR NEEDS: 1034-1104 KCALS (28-32 KCALS/KG) 65-85 GM PROTEIN (1.0-1.3 GM/KG) 1 ML FLUID/KCAL D-AT NUTRITION RISK W/INADEQUATE ORAL INTAKE AT TIMES R/T ALTERED APPETITE AEB INTAKE RECORDS. I-ADD MAGIC CUPS BID AT L/D M/E-GOAL: PO INTAKE >/=50% BY DISCHARGE 1)F/U PO INTAKE, SUPPLEMENT, WT, AND POC IN 3-5 DAYS 2)ASSIST NEEDED
--- NOTE | 2016-12-16 19:25 | NUR ---
Significant Event:VSS, mostly nonverbal, mumbles at times. Repositions with 2 assist, Dilaudid 0.4mg IV at 1150. Rests at intervals. Mepilex dsg x 2, CDI to R hip. Ecchymosis noted to R hip area. Pt is to be NPO for R hip revision; permit signed. Pt ate some breakfast, takes pills crushed in chocolate pudding. Refused lunch, pt spits food out at times. Meds held due to pt refusal. Follow up:Preop checklist.
--- NOTE | 2016-12-17 04:12 | NUR ---
Patient responds to voice, speech is garbled, dressings clean dry and intact to right hip, csm is with in normal limits, is on bedrest is non-weight bearing to right lower leg, is on pureed diet and thick liquids, crushed pills in applesauce, refused to eat supper needs assistance with meals, placed catheter this shift, has new IV in left forearm, rested well tonight, has D5NS running at 60ml/hr, to have surgery again on the right hip today
[2016-12-17 05:33] LABS: HEMATOCRIT 33.6 % (33.0-46.0)
--- NOTE | 2016-12-17 12:17 | NUR ---
PT TAKEN DOWN TO [facility] AT 1130 FOR OR PREP
--- NOTE | 2016-12-17 15:25 | NUR ---
Pt out of room for surgery per nsg. ST plan to cont. POC
--- NOTE | 2016-12-17 17:45 | NUR ---
Significant Event: pt arrived back on floor at 1700 from pacu. post op vitals cont with first 1/2 hour at 1815. suarez cath intact. dressings to hip intact. pt refused all meds. given iv dilaudid for pain. percocet given but pt spit most of it out. restless in the bed. iv fluids infusing. scratching head alot. bed alarms on. no family present. Follow up:
--- NOTE | 2016-12-18 04:34 | NUR ---
Patient responds to voice but is mostly non-verbal , dressings are clean dry and intact, csm with in normal limits, uses full body lift for transfers, has been slightly hypotensive since surgery, was restless and yelling out was given IV dilaudid which helped, is on pureed diet and thickend liquids, needs assistance with meals,
[2016-12-18 06:12] LABS: BASOPHIL % 0.5 %; EOSINOPHIL # 0.2 K/uL (0.0-0.5); EOSINOPHIL % 2.4 %; HEMATOCRIT 30.5 % (33.0-46.0); IMMATURE GRANULOCYTE # 0.1 K/uL (0.0-0.3); IMMATURE GRANULOCYTE % 0.8 %; LYMPHOCYTE # 0.6 K/uL (0.8-4.0); LYMPHOCYTE % 6.6 %; MCH 33.6 pg (27.0-34.0); MCHC 32.8 gm/dL (32.0-36.5); MCV 102.3 fl (83.0-98.0); MONOCYTE # 0.6 K/uL (0.0-1.0); MONOCYTE % 7.3 %; MPV 9.1 fl (9.4-12.4); NEUTROPHIL # (ANC) 6.9 K/uL (1.8-7.8); NEUTROPHIL % 82.4 %; NRBC % 0 /100WBC (0-0.00); RBC 2.98 M/uL (3.50-5.50); RDW-CV 14.3 % (11.9-14.6); WBC 8.4 K/uL (4.0-11.0)
[2016-12-18 06:14] LABS: PLATELET COUNT 301 K/uL (150-450)
[2016-12-18 06:28] LABS: BLOOD UREA NITROGEN 7 mg/dL (6-24); CALCIUM 8.1 mg/dL (8.5-10.5); CHLORIDE 114 mMol/L (96-110); CO2 27 mMol/L (22-32); CREATININE 0.6 mg/dL (0.5-1.1); POTASSIUM 4.3 mMol/L (3.7-5.1)
[2016-12-18 06:29] LABS: ANION GAP 12.3 (10.0-19.0); SODIUM 149 mMol/L (135-145)
--- NOTE | 2016-12-18 10:05 | NUR ---
Called patients and left a message if they wanted Swing or SNF? 1030 Jeff called back and he said patients doctor wanted swing first then back to SNF. 1130 Spoke to Michelle at [facility], faxed referral. 1335 Michelle called and she has not seen referral. I read back fax number the nurse had given me. That was the nurses station so she will check there. [address] Chaparro will accept tomorrow but has to be there before 1600. His number #[phone]. Updated Jarred Wood, called Mike for Dr. Rivers. Called EMS and spoke to Mone. Made arrangements for a 1100 transfer. Updated charge nurse Hue and started a packet. Called #[phone] - he will notify the SNF where she is going. Notes placed on chart with doc #, nurse #, and discharge info. [facility] P#[phone] ext [phone] and F#[phone]. Ambulance Cert and orders on the chart.
--- NOTE | 2016-12-18 16:52 | NUR ---
Significant Event: pt cont to be confused. combative and restless at times. please push fluids on her every 2 hours due to elevated sodium levels. pt took in 840 po for me. takes meds crushed in clarissa ice cream. does refuse them at times. refused meds at 1200 meds but took all the morning ones. iv dilaudid for pain. percocet po this afternoon. suarez remains intact. 600 out. iv saline locked. waiting on return to halfway.
--- NOTE | 2016-12-19 03:31 | NUR ---
Significant Event: Non-verbal, drowsy, keeps eyes closed mostly. Moves extremities spontaneously. Hypotension this shift. 80s/40s, 1L NS bolus, BP improved to 100s/60s. D5W at 50ml/hr. Patient resistant to taking sips of water with repositioning Q2hrs. HS meds not given due to patient condition. Clemente patent. Follow up: waiting on placement.
--- NOTE | 2016-12-19 08:35 | NUR ---
Sarahi, charge on 3N called. Test being run, patient may not be ready to go at 1100. 0900 Anita with EMS called, postponed transport. 929 Jarred Wood filled me in on labs being done. 1100 Called Michelle at [facility] to update. Not coming today can they accept Thursday or Thursday? Faxed updates. 1155 Dr. Austin at this point feels it is only a UTI and can plan for tomorrow. Called EMS to cancel today and move to tomorrow. 1250 Phone Jeff #[phone]. 1300 Michelle called and they will have to take Thursday. 1335 Updated Jarred Wagoner. Patient might need a feeding tube placed and unsure if SNF can take with this. Attempted to call [facility] but it rang for 3 minutes and no one answered. 1515 JACOB Guardado from [facility] left me a message that they will hold patients bed, they do have another patient with a tube feeding so that will hopefully not be an issue.
[2016-12-19 09:50] LABS: BASOPHIL % 0.5 %; EOSINOPHIL # 0.1 K/uL (0.0-0.5); EOSINOPHIL % 1.6 %; HEMATOCRIT 32.8 % (33.0-46.0); HEMOGLOBIN 10.7 g/dL (10.0-15.0); IMMATURE GRANULOCYTE % 0.5 %; LYMPHOCYTE # 0.5 K/uL (0.8-4.0); LYMPHOCYTE % 6.9 %; MCH 32.6 pg (27.0-34.0); MCHC 32.6 gm/dL (32.0-36.5); MONOCYTE # 0.5 K/uL (0.0-1.0); MONOCYTE % 5.9 %; NEUTROPHIL # (ANC) 6.5 K/uL (1.8-7.8); NEUTROPHIL % 84.6 %; NRBC % 0 /100WBC (0-0.00); PLATELET COUNT 335 K/uL (150-450); RBC 3.28 M/uL (3.50-5.50); RDW-CV 15.2 % (11.9-14.6); WBC 7.7 K/uL (4.0-11.0)
[2016-12-19 10:02] LABS: ANION GAP 15.6 (10.0-19.0); BLOOD UREA NITROGEN 5 mg/dL (6-24); CALCIUM 7.7 mg/dL (8.5-10.5); CHLORIDE 110 mMol/L (96-110); CO2 22 mMol/L (22-32); CREATININE 0.5 mg/dL (0.5-1.1); POTASSIUM 3.6 mMol/L (3.7-5.1); SODIUM 144 mMol/L (135-145)
[2016-12-19 10:45] LABS: BILIRUBIN URINE NEGATIVE (NEGATIVE); BLOOD URINE 10 /UL (NEGATIVE); COLOR URINE YELLOW (YELLOW); GLUCOSE URINE NEGATIVE (NEGATIVE); KETONE URINE NEGATIVE (NEGATIVE); LEUKOCYTES URINE 25 /UL (NEGATIVE); NITRITE URINE NEGATIVE (NEGATIVE); PROTEIN URINE 15 mg/dL (NEGATIVE); TURBIDITY URINE CLEAR (CLEAR); UROBILINOGEN URINE NORMAL (NORMAL)
[2016-12-19 10:55] LABS: BACTERIA URINE MODERATE (NEGATIVE); MUCUS URINE 3+ (NEGATIVE)
--- NOTE | 2016-12-19 11:21 | NUR ---
pt refused to eat breakfast. spit it out. tryed to given medications at 0900 and again at 1030. pt cont to spit out meds.
--- NOTE | 2016-12-19 14:09 | NUR ---
PT REFUSED ALL THE MORNING MEDS THIS AM. TRYED SEVERAL DIFF TIMES TO GIVE. AT 1130 PT HAD A LARGE EMESIS. REPORTED TO DR MAURO AND ORDERS RECIEVED. PT NOW NPO. IV FLUIDS CHANGED.
--- NOTE | 2016-12-19 14:59 | NUR ---
A - NUTRITION FOLLOW-UP; INTERDISCIPLINARY REFERRAL; CONSULT FOR TF RECS NON-VERBAL. SPOKE TO ST, RIP, WHO REPORTED PT NOT TOLERATING PUREE/NECTAR LIQ DIET, HAS BEEN REFUSING MEALS/SPITTING FOOD OUT. TO HAVE PEG PLACEMENT PER MD ORDER IN CHART. LABS: K+ 3.6, BUN 5 MEDS: REVIEWED. DIET: PUREE/NECTAR THICK W/ MAGIC CUP BID. INTAKE REF-25% X11 MEALS. 1:1 FEEDER. EST NEEDS: 2834-8224 KCAL, 65-85 GRAMS PROTEIN, FLUID NEEDS: 1ML/KCAL D - INADEQUATE ORAL INTAKE RELATED TO NOT TOLERATING ORAL DIET/TROUBLE SWALLOWING EVIDENCED BY PO REF-25% X11 MEALS, ST REPORT AND PEG PLACEMENT. I - WHEN PEG READY TO BE USED, RECOMMEND JEVITY 1.5 AT 55ML/HR WITH 40ML/HR WATER FLUSHES TO PROVIDE 1980 KCAL, 84 GRAMS PROTEIN, 1003ML FREE WATER. START AT 10ML/HR X 4-8 HR, INCREASE 10ML/HR EVERY 4-8 HR TILL GOAL RATE. M/E - GOAL: PT WILL BE ABLE TO TOLERATE ENTERAL NUTRITION IN 2-4 DAYS.
--- NOTE | 2016-12-19 16:12 | NUR ---
Significant Event: PT CONFUSED. REFUSED ALL MEALS. REFUSED ALL MEDS. LARGE EMESIS THIS AM. PT NOW NPO. WILL HAVE A PEG TUBE PLACED BUT UNSURE OF DATE AND TIME. SHRADDHA FLUIDS CHANGED. MORROW REMOVED THIS AM. SMALL AMOUNT OF URINE OUT AFTER REMOVED. LARGE BM TODAY. REPOSITIONED EVERY 2 HOURS. DRESSINGS CHANGED TODAY. Follow up:
[2016-12-20 03:29] LABS: ANION GAP 10.6 (10.0-19.0); BLOOD UREA NITROGEN 3 mg/dL (6-24); CALCIUM 7.9 mg/dL (8.5-10.5); CHLORIDE 107 mMol/L (96-110); CO2 27 mMol/L (22-32); CREATININE 0.5 mg/dL (0.5-1.1); POTASSIUM 3.6 mMol/L (3.7-5.1); SODIUM 141 mMol/L (135-145)
--- NOTE | 2016-12-20 04:41 | NUR ---
Pt up 1 assist. Thea fair on. Requip at 2039. PICC in upper right arm, with good blood return. Daily weight with standing scale. 3L O2. On IV vanco.
--- NOTE | 2016-12-20 04:44 | NUR ---
Pt full lift. Q2H turn. incontinent of urine and bm. Two bm's. D51/2NS 30 mEQ KCL x1 then bmp one hour after infusion. Continue just D5 1/2NS at 60 after potassium infusion.
--- NOTE | 2016-12-20 10:28 | NUR ---
CONSULT RECEIVED FOR TF RECS. RECS PLACED IN CHART ON 12/19. REC JEVITY 1.5 @ 55 ML/HR W/ 40 ML/HR WATER. PEG NEEDS PLACED.
[2016-12-20 12:27] LABS: BLOOD UREA NITROGEN 4 mg/dL (6-24); CALCIUM 7.8 mg/dL (8.5-10.5); CHLORIDE 109 mMol/L (96-110); CO2 22 mMol/L (22-32); CREATININE 0.4 mg/dL (0.5-1.1); SODIUM 140 mMol/L (135-145)
[2016-12-20 12:30] LABS: ANION GAP 13.4 (10.0-19.0); POTASSIUM 4.4 mMol/L (3.7-5.1)
--- NOTE | 2016-12-20 13:31 | NUR ---
Significant Event: Responds to voice. NPO. Has D51/2 running at 60ml/hr. Potassium-4.4 NA-140. 2 assist. Turn Q2hrs. Incontinent of bowel and urine. TTWB R) leg. Use full lift. DNR. Dressings C/D/I. Follow up:
--- NOTE | 2016-12-21 04:29 | NUR ---
Patient is non-verbal will look at you when spoken too, dressings x3 clean dry and intact, csm with in normal limits, transfers using the full body lift, has had three loose stools this shift hematests where done, very restless was given IV dilaudid, will not take any medications orally
[2016-12-21 06:53] LABS: ALBUMIN 2.4 gm/dL (3.5-5.0); ALK PHOS 207 IU/L (33-138); ALT 71 IU/L (12-78); BLOOD UREA NITROGEN 4 mg/dL (6-24); CALCIUM 8.1 mg/dL (8.5-10.5); CHLORIDE 110 mMol/L (96-110); CO2 22 mMol/L (22-32); CREATININE 0.5 mg/dL (0.5-1.1); PHOSPHORUS 3.4 mg/dL (2.5-4.9); SODIUM 142 mMol/L (135-145); TOTAL PROTEIN 5.8 g/dL (6.0-8.4)
[2016-12-21 06:54] LABS: ANION GAP 14.6 (10.0-19.0); AST 83 IU/L (10-40); TOTAL BILIRUBIN 0.7 mg/dL (0.0-1.5)
[2016-12-21 06:55] LABS: MAGNESIUM 1.9 mg/dL (1.8-2.6); POTASSIUM 4.6 mMol/L (3.7-5.1)
--- NOTE | 2016-12-21 13:20 | NUR ---
Significant Event: Responds to voice. Seems to be a little better today. Patient spoke to staff. Turn Q2hrs. NPO. IV dialuidid given for pain. VSS. Dressings C/D/I. Suppose to have pegtube placed tomorrow. Follow up:
--- NOTE | 2016-12-22 04:24 | NUR ---
Patient responds to voice, is more responsive today and is trying to communicate, was started on TPN last night through IV in right forearm it became infiltrated dc'd the IV and it is now running in the left ac, VSS stable, csm with in normal limits, transfers using the lift, dressings x3 are clean dry and intact, suarez catheter in place NPO to have peg tube inserted today, check list started and in chart, has new order for IV ativan spit all pills out last night, was given ativan and IV diluadid at 0230, is on q4hour vitals and accuchecks, blood glucose was 125 at 2300 and 139 at 0300
[2016-12-22 06:47] LABS: ALBUMIN 2.6 gm/dL (3.5-5.0); ALK PHOS 235 IU/L (33-138); ALT 78 IU/L (12-78); CALCIUM 8.5 mg/dL (8.5-10.5); CHLORIDE 109 mMol/L (96-110); CO2 22 mMol/L (22-32); CREATININE 0.5 mg/dL (0.5-1.1); PHOSPHORUS 3.3 mg/dL (2.5-4.9); SODIUM 140 mMol/L (135-145); TOTAL BILIRUBIN 0.8 mg/dL (0.0-1.5); TOTAL PROTEIN 6.4 g/dL (6.0-8.4)
[2016-12-22 06:49] LABS: ANION GAP 13.3 (10.0-19.0); AST 76 IU/L (10-40); BLOOD UREA NITROGEN 8 mg/dL (6-24); POTASSIUM 4.3 mMol/L (3.7-5.1)
[2016-12-22 06:52] LABS: BASOPHIL # 0.1 K/uL (0.0-0.2); BASOPHIL % 0.6 %; EOSINOPHIL # 0.2 K/uL (0.0-0.5); EOSINOPHIL % 2.6 %; HEMATOCRIT 32.4 % (33.0-46.0); HEMOGLOBIN 10.8 g/dL (10.0-15.0); IMMATURE GRANULOCYTE # 0.1 K/uL (0.0-0.3); IMMATURE GRANULOCYTE % 1.4 %; LYMPHOCYTE # 0.6 K/uL (0.8-4.0); LYMPHOCYTE % 6.7 %; MCH 32.7 pg (27.0-34.0); MCHC 33.3 gm/dL (32.0-36.5); MCV 98.2 fl (83.0-98.0); MONOCYTE # 0.7 K/uL (0.0-1.0); MONOCYTE % 7.7 %; MPV 9.4 fl (9.4-12.4); NEUTROPHIL # (ANC) 7.6 K/uL (1.8-7.8); NRBC % 0 /100WBC (0-0.00); RDW-CV 14.8 % (11.9-14.6); WBC 9.4 K/uL (4.0-11.0)
[2016-12-22 07:16] LABS: PLATELET COUNT 472 K/uL (150-450)
--- NOTE | 2016-12-22 10:25 | NUR ---
Updated Michelle at [facility] about feeding tube placement today. Unsure on date of discharge but we will talk tomorrow. She is off Thursday. Her extension is #[phone].
--- NOTE | 2016-12-22 15:04 | NUR ---
A - NUTRITION F/U. ALERT, NON-VERBAL. GLU 128, BUN/CHEMICAL PRODUCTION ENGINEER 8/0.5, ALB 2.6. PT W/ 2-3+ EDEMA TO R) ARM. PT IS NPO. PPN STARTED YESTERDAY AT 75 ML/HR = 918 KCALS, 76 GM PROTEIN. EST NEEDS: 9335-2211 KCALS, 65-85 GM PROTEIN. PEG SUPPOSED TO BE PLACED TODAY. D - AT RISK W/ INADEQUATE NUTRIENT INTAKE R/T REFUSAL TO EAT AEB NEED FOR EN/PN. I - GOAL: TO MEET NEEDS VIA ALTERNATE FEEDING ROUTE. M/E - IF PEG PLACED, REC JEVITY 1.5 TO RUN AT 55 ML/HR W/ FLUIDS AT 40 ML/HR. IF PEG IS NOT PLACED, REC ADDING 500 ML 20% DAILY LIPIDS TO PPN TO INCREASE ENERGY ALLOWANCE TO 1918 KCALS. WILL F/U IN 1-2 DAYS.
--- NOTE | 2016-12-22 17:27 | NUR ---
Significant Event:Midline IV to lt upper arm. PEG placed this afternoon. Abdominal binder on. Ativan 0.5mg at 1127. Occasionally tries to get OOB. Bed alarm on. [place]e patent. Peripheral TPN running at 75ml/h.RT arm/hand edematous Follow up:
--- NOTE | 2016-12-23 04:55 | NUR ---
Patient responds to voice, has been drowsy this shift, peg tube was placed meds given through tube patient tolerated well, has mid line in place to left upper arm, has TPN running at 75ml, has BS checks q4hr, vitals q4hrs, and is a daily weight, folely catheter in place, dressing x3 clean dry and intact to right hip/thigh, csm with in noraml limits, plans to transfer back to senior care
[2016-12-23 05:54] LABS: BASOPHIL % 0.2 %; EOSINOPHIL # 0.1 K/uL (0.0-0.5); EOSINOPHIL % 1.7 %; HEMATOCRIT 34.1 % (33.0-46.0); HEMOGLOBIN 11.3 g/dL (10.0-15.0); IMMATURE GRANULOCYTE # 0.1 K/uL (0.0-0.3); IMMATURE GRANULOCYTE % 0.6 %; LYMPHOCYTE # 0.6 K/uL (0.8-4.0); LYMPHOCYTE % 6.7 %; MCH 32.8 pg (27.0-34.0); MCHC 33.1 gm/dL (32.0-36.5); MCV 99.1 fl (83.0-98.0); MONOCYTE # 0.6 K/uL (0.0-1.0); MONOCYTE % 6.7 %; MPV 8.6 fl (9.4-12.4); NEUTROPHIL # (ANC) 7.1 K/uL (1.8-7.8); NEUTROPHIL % 84.1 %; NRBC % 0 /100WBC (0-0.00); PLATELET COUNT 409 K/uL (150-450); RBC 3.44 M/uL (3.50-5.50); RDW-CV 15.4 % (11.9-14.6); WBC 8.4 K/uL (4.0-11.0)
[2016-12-23 06:09] LABS: ALBUMIN 2.6 gm/dL (3.5-5.0); ALK PHOS 223 IU/L (33-138); ALT 54 IU/L (12-78); ANION GAP 9.8 (10.0-19.0); AST 34 IU/L (10-40); BLOOD UREA NITROGEN 10 mg/dL (6-24); CALCIUM 8.4 mg/dL (8.5-10.5); CHLORIDE 109 mMol/L (96-110); CO2 28 mMol/L (22-32); CREATININE 0.5 mg/dL (0.5-1.1); POTASSIUM 3.8 mMol/L (3.7-5.1); SODIUM 143 mMol/L (135-145); TOTAL BILIRUBIN 0.8 mg/dL (0.0-1.5); TOTAL PROTEIN 6.4 g/dL (6.0-8.4)
--- NOTE | 2016-12-23 12:27 | NUR ---
Significant Event: PATIENT ALERT, DROWSY AT TIMES, RESPONDS TO VOICE, MUMBLES. MEPILEX DRESSINGS X3 TO R) HIP/THIGH WITH SMALL AMOUNT OF OLD DRAINAGE. MORROW PATENT WITH 325ML OUT. MIDLINE TO L) UPPER ARM REMOVED, GAUZE/COBAN DRESSING APPLIED. PEG TUBE TO ABDOMEN (TAPE IN PLACE), 1050 BOLUS FEEDING STARTED RESIDUAL 15ML, GAVE 60ML WATER, 110ML JEVITY 1.5, AND FOLLOWED WITH 60ML OF WATER, PATIENT TOLERATED WELL. MED'S GIVEN VIA PEG TUBE. RESIDUAL AT 1200 WAS 10ML, 1200 MEDICATION GIVEN. ABDOMEN BINDER IN PLACE TO PREVENT PATIENT FROM PULLING OUT PEG TUBE. ACCUCHECK 106 AT 0700 AND 103 AT 1100. WEIGHT 62.9 KGS THIS AM. VS 98.4, 73, 16, 102/35, 95% ON ROOM AIR. ATTEMPTED TO DO ORAL CARES, PATIENT REFUSED. SEEN BY OT (BATH GIVEN), DANGLED AT BEDSIDE. Follow up:
--- NOTE | 2016-12-23 12:45 | NUR ---
D: PATIENT TRANSFER TO [facility] ACCOMPANIED BY AMBULANCE ATTENDENTS, ASSISTED TO STRETCHER WITH 4 ASSIST. SEE TRANSFER NOTE
--- NOTE | 2016-12-23 15:47 | NUR ---
0900 Per Arabella Hahn-HARDY, patient is ready for discharge today. 0910 Called patients to confirm discharge location? Swing bed. 0930 Updated Arabella, got tub feeding information. Called Michelle at [facility] and faxed her updates. 1010 Michelle called back and they can't accept today afterall due to Dr. Chaparro being off today. Updated Arabella. Called about going to [facility]. Called [facility] #[phone] and left a message for their DON Debby. Went ahead and faxed updates #[phone]. 1030 Debby called and left a message, they can not do continuos feeds. 1040 Called Michelle and asked if a different doctor can accept for a day? She will check. 1040 Debby call and she will do some checking as she did further reading and it is bolus feedings. [address] Chandler will accept today #[phone]. Called Debby to update, they will take from [facility] when ready next week. Called EMS, Chiquis, still a go. Suzanna crew should be here around 1200. 1115 Called Arabella Hahn to update and give doc number. 1135 EMS called will be here around 1200. Updated Hue Charge, gave nurse number to call report, called . 1200 faxed orders #[phone].
== END 2016-12-23 12:30 | disposition swing bed (61) | DRG 480 ==
LOC: G3N 20:03
PROVIDERS: Family Medicine; Internal Medicine; Nurse Practitioner Family; Orthopaedic Surgery Adult Reconstructive Orthopaedic Surgery; ADMIT Internal Medicine
DX: S72.141A Displaced intertrochanteric fracture of right femur, initial encounter for closed fracture (principal); G93.40 Encephalopathy, unspecified; E44.0 Moderate protein-calorie malnutrition; I95.9 Hypotension, unspecified; E87.0 Hyperosmolality and hypernatremia; R13.10 Dysphagia, unspecified; M97.01XA Periprosthetic fracture around internal prosthetic right hip joint, initial encounter; G40.802 Other epilepsy, not intractable, without status epilepticus; W05.0XXA Fall from non-moving wheelchair, initial encounter; I10 Essential (primary) hypertension; Z66 Do not resuscitate; Z68.23 Body mass index [BMI] 23.0-23.9, adult; E55.9 Vitamin D deficiency, unspecified; Z96.89 Presence of other specified functional implants; R74.8 Abnormal levels of other serum enzymes; Z86.19 Personal history of other infectious and parasitic diseases; Z79.899 Other long term (current) drug therapy; F91.9 Conduct disorder, unspecified; K59.09 Other constipation; W07.XXXA Fall from chair, initial encounter; Y92.230 Patient room in hospital as the place of occurrence of the external cause; R19.7 Diarrhea, unspecified
CPT/HCPCS: C1713; C1751; J0690; J0696; J1100; J1170; J1650; J2001; J2060; J2405; J3480; J7030; J7040; J7042; J7050; J7060; J7120

== ENCOUNTER → 2016-12-23 | Outpatient (CLI) | payer BC, MEDICARE, MEDICAID ==
[~2016-12-23] MED LIST: ABILIFY20 MG PO; ATIVAN 0.5MG0.5 MG PO; BANZEL400 MG PO; BUSPAR5 MG PO; DIOCTO (= CO10 MG/ML PO; DULCOLAX10 MG R; FELBATOL600 MG PO; GABITRIL12 MG PO; GEODON20 MG PO; GEODON60 MG PO; GEODON80 MG PO; IMODIUM2 MG PO; LORAZEPAM 1 MG TOP; LORAZEPAM 2 MG TOP; MAALOX LIQ UNIT30 ML PO; MILK OF MA400 MG/5 M PO; MIRALAX17 GM PO; NORVASC10 MG PO; NYSTATIN1 EAC1 TOP; ONFI10 MG PO; ONFI20 MG R; OXYGEN M-15 INH; PROVENTIL2.5 MG/0.5 INH; SENNA8.6 MG PO; THERAGRAN-M1 TAB PO; TYLENOL325 MG PO; TYLENOL650 MG R; [UNRECOGNIZED DRUG - OTHER] TOP; [UNRECOGNIZED DRUG - OTHER] TOP
== END | disposition disaster alternative care site (69) ==
LOC: GAMB 12:40
DX: S79.921D Unspecified injury of right thigh, subsequent encounter (principal); S72.301D Unspecified fracture of shaft of right femur, subsequent encounter for closed fracture with routine healing; M79.651 Pain in right thigh; D64.9 Anemia, unspecified; F41.8 Other specified anxiety disorders; R13.10 Dysphagia, unspecified; Z98.890 Other specified postprocedural states; Z79.891 Long term (current) use of opiate analgesic; Z79.01 Long term (current) use of anticoagulants; Z79.899 Other long term (current) drug therapy; Z88.1 Allergy status to other antibiotic agents; Z88.5 Allergy status to narcotic agent; Z88.8 Allergy status to other drugs, medicaments and biological substances; W19.XXXA Unspecified fall, initial encounter
CPT/HCPCS: A0425; A0428